=== PATIENT | female | born 2000 | race African-American/Black ===

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

== ENCOUNTER 2021-01-09 07:51 | Emergency (ER) | payer OTHER ==
[2021-01-09 21:07] LABS: SARS-CoV-2 PCR by NAA DETECTED (NotDetected)
== END 2021-01-09 08:25 | disposition home or self-care (01) ==
LOC: NAV ERS 07:51
DX: U07.1 COVID-19 (principal); F17.290 Nicotine dependence, other tobacco product, uncomplicated
CPT/HCPCS: 87635; 99283; U0003; U0005

== ENCOUNTER 2021-01-27 19:08 | Emergency (ER) | payer OTHER ==
[2021-01-27] MEDS ORDERED: Naproxen 500 MG TAB ONE (19:30)
== END 2021-01-27 19:30 | disposition home or self-care (01) ==
LOC: NAV ERS 19:08
DX: S39.012A Strain of muscle, fascia and tendon of lower back, initial encounter (principal); F17.290 Nicotine dependence, other tobacco product, uncomplicated; V89.2XXA Person injured in unspecified motor-vehicle accident, traffic, initial encounter
CPT/HCPCS: 99283

== ENCOUNTER 2021-04-25 18:13 | Emergency (ER) | payer OTHER ==
[2021-04-25] MEDS ORDERED: Acetaminophen 500 MG TAB ONE (18:36)
[2021-04-25] MEDS ORDERED: Dexamethasone 4 MG TAB ONE (18:36)
== END 2021-04-25 18:42 | disposition home or self-care (01) ==
LOC: NAV ERS 18:13
DX: J00 Acute nasopharyngitis [common cold] (principal)
CPT/HCPCS: 99283; J8540

== ENCOUNTER 2023-09-16 13:01 | Emergency (ER) | payer OTHER ==
[2023-09-16] MEDS ORDERED: Ondansetron ODT 4 MG TAB ONE (13:38)
== END 2023-09-16 14:24 | disposition home or self-care (01) ==
LOC: NAV ERS 13:01
DX: R11.2 Nausea with vomiting, unspecified (principal); F17.290 Nicotine dependence, other tobacco product, uncomplicated
CPT/HCPCS: 99283; Q0162